=== PATIENT | female | born 1965 | race Caucasian/White ===

== ENCOUNTER 2016-12-12 12:06 | Inpatient (IN) | payer OTHER, MEDICAID ==
[~2016-12-12] VITALS: Ht 160 cm; Wt 52.2 kg
[2016-12-12 13:30] VITALS: BP_SYST 136
[2016-12-12 14:51] LABS: BASOPHILS # (AUTO) 0.1 K/uL (0.0-0.2); BASOPHILS % (AUTO) 1.5 % (0.0-2.0); EOSINOPHILS # (AUTO) 0.1 K/uL (0.0-0.4); HEMATOCRIT 36.6 % (36-48); HEMOGLOBIN 12.1 g/dL (12.0-16.0); LYMPHOCYTES # (AUTO) 2.8 K/uL (1.0-5.5); MEAN CORPUSCULAR HEMOGLOBIN 29 pg (27-31); MEAN CORPUSCULAR HGB CONC 33 % (32-36); MEAN CORPUSCULAR VOLUME 88 fL (79.0-98.0); MONOCYTES # (AUTO) 0.6 K/uL (0.0-1.0); MONOCYTES % (AUTO) 5.9 % (1.7-9.3); NEUTROPHILS # (AUTO) 6.1 K/uL (1.8-7.7); NEUTROPHILS % (AUTO) 62.6 % (40.0-70.0); PLATELET COUNT (AUTO) 327 K/uL (130-430); RED BLOOD CELL COUNT(AUTO) 4.16 MIL/uL (4.2-6.2); RED CELL DISTRIBUTION WIDTH 13.1 % (9.0-15.0); WHITE BLOOD COUNT (AUTO) 9.7 K/uL (4.8-10.8)
[2016-12-12 14:55] LABS: ALANINE AMINOTRANSFERASE 22 U/L (12-78); ALBUMIN 3.7 g/dL (3.4-4.8); ASPARTATE AMINOTRANSFERASE 21 U/L (10-37); CALCIUM 9.2 mg/dL (8.4-11.0); CHLORIDE 106 mmol/L (98-107); CREATININE 0.55 mg/dL (0.55-1.30); GLUCOSE 99 mg/dL (70-99); SODIUM SERUM 137 mmol/L (136-145); TOTAL BILIRUBIN 0.2 mg/dL (0.0-1.0); TOTAL PROTEIN, SERUM 7.3 g/dL (6.4-8.3); UREA NITROGEN, BLOOD 7 mg/dL (8-21)
[2016-12-12 14:56] LABS: ANION GAP < 3 (5-15); GFR AFRICAN AMERICAN 151 mL/min (>90)
[2016-12-12] MEDS ORDERED: clonazePAM 0.5 MG TABLET PO SCH (15:00)
[2016-12-12 16:45] VITALS: BP_SYST 132
[2016-12-12 20:45] VITALS: BP_SYST 100
[2016-12-12] MEDS: ARIPiprazole 5 MG TAB PO SCH (21:00)
[2016-12-12] MEDS: clonazePAM 0.5 MG TABLET PO SCH (22:49)
[2016-12-12 23:57] VITALS: BP_SYST 119
[2016-12-13 04:10] VITALS: BP_SYST 102
[2016-12-13] MEDS: HYDROcodone/ACETAMIN 10-325 MG TAB PO PRN ×3 (05:17→22:15)
[2016-12-13 08:43] VITALS: BP_SYST 102
[2016-12-13] MEDS: clonazePAM 0.5 MG TABLET PO SCH ×2 (10:29→17:32)
[2016-12-13 12:27] VITALS: BP_SYST 133
[2016-12-13 16:42] VITALS: BP_SYST 116
[2016-12-13] MEDS: ARIPiprazole 5 MG TAB PO SCH (21:00)
[2016-12-14 00:59] VITALS: BP_SYST 103
[2016-12-14 05:42] VITALS: BP_SYST 136
[2016-12-14 08:00] VITALS: BP_SYST 101
[2016-12-14] MEDS: clonazePAM 0.5 MG TABLET PO SCH ×2 (09:10→12:03)
[2016-12-14 12:56] VITALS: BP_SYST 138
[2016-12-14 13:00] VITALS: BP_SYST 113
[2016-12-14] MEDS: HYDROcodone/ACETAMIN 10-325 MG TAB PO PRN (16:13)
[2016-12-14 16:56] VITALS: BP_SYST 117
[2016-12-14] MEDS: ARIPiprazole 5 MG TAB PO SCH (21:00)
[2016-12-15] MEDS: clonazePAM 0.5 MG TABLET PO SCH (00:11)
[2016-12-15 00:29] VITALS: BP_SYST 100
[2016-12-15 03:31] VITALS: BP_SYST 116
[2016-12-15 08:21] VITALS: BP_SYST 115
[2016-12-15 09:46] VITALS: BP_SYST 115
== END 2016-12-15 10:04 | disposition home or self-care (01) | DRG 885 ==
LOC: SMU 12:29
PROVIDERS: ADMIT Family Medicine; ATTEND Family Medicine
DX: F23 Brief psychotic disorder (principal); F31.60 Bipolar disorder, current episode mixed, unspecified; M54.9 Dorsalgia, unspecified; G43.909 Migraine, unspecified, not intractable, without status migrainosus; F41.9 Anxiety disorder, unspecified; G89.29 Other chronic pain; Z79.899 Other long term (current) drug therapy
CPT/HCPCS: 36415; 71010; 80053; 85025